=== PATIENT | female | born 1975 | race American Indian/Alaskan Native ===

== ENCOUNTER 2021-07-19 10:59 | Outpatient (CLI) | payer BC ==
--- NOTE | 2021-07-19 12:13 | XRay Report ---
CHEST 2 VIEWS INDICATION / CLINICAL INFORMATION: DYSPNEA. COMPARISON: 05/25/2021 FINDINGS: SUPPORT DEVICES: None. HEART / MEDIASTINUM: No significant abnormality. LUNGS / PLEURA: No significant pulmonary or pleural abnormality. No pneumothorax. ADDITIONAL FINDINGS: No significant additional findings. IMPRESSION: 1. No acute findings. Signer Name: Bruce Izaguirre DO Signed: 07/19/2021 12:08 PM Workstation Name: [id number]
== END 2021-07-19 11:00 | disposition home or self-care (01) ==
LOC: XRAY 10:59
DX: R06.00 Dyspnea, unspecified (principal)
CPT/HCPCS: 71046